=== PATIENT | female | born 1985 | race Hispanic/Latino ===

== ENCOUNTER 2018-07-08 10:08 | Emergency (ER) | payer OTHER ==
[2018-07-08] MEDS ORDERED: DEXAMETHASONE 10MG/ML PF INJ IV ONE (10:30)
== END 2018-07-08 10:55 | disposition home or self-care (01) ==
LOC: FSED 10:08
DX: L50.0 Allergic urticaria (principal); T36.1X4A Poisoning by cephalosporins and other beta-lactam antibiotics, undetermined, initial encounter
CPT/HCPCS: 99283

== ENCOUNTER 2018-07-15 10:00 | Emergency (ER) | payer OTHER ==
[~2018-07-15] VITALS: Ht 157.5 cm; Wt 90.7 kg
== END 2018-07-15 10:35 | disposition home or self-care (01) ==
LOC: FSED 10:00
DX: L50.9 Urticaria, unspecified (principal)
CPT/HCPCS: 99282